=== PATIENT | male | born 1980 | race Two or more races ===

== ENCOUNTER 2023-05-24 14:17 | Emergency (ER) | payer SELFPAY ==
[2023-05-24] MEDS ORDERED: predniSONE 20 MG TAB ONE (15:01)
== END 2023-05-24 15:07 | disposition home or self-care (01) ==
LOC: BURERS 14:17
DX: T78.40XA Allergy, unspecified, initial encounter (principal); F17.210 Nicotine dependence, cigarettes, uncomplicated
CPT/HCPCS: 99283; J7512